=== PATIENT | male | born 2000 | race Caucasian/White ===

== ENCOUNTER 2023-05-25 08:33 | Inpatient (IN) | payer OTHER ==
[~2023-05-25] VITALS: Ht 183.5 cm; Wt 100.0 kg
[2023-05-25] MEDS ORDERED: IBUPROFEN 600 MG TABLET PO ONE (09:30)
[2023-05-25] MEDS ORDERED: HYDROCODONE/ACETAMINOPHEN 5-325 MG TABLET PO ONE (09:30)
[2023-05-25 10:35] LABS: BASOPHILS % (AUTO) 0.8 % (0.0-2.0); EOSINOPHILS % (AUTO) 2.5 % (1.0-6.0); HEMATOCRIT 41.2 % (41-53); LYMPHOCYTES # (AUTO) 2.5 K/uL (1.0-4.8); LYMPHOCYTES % (AUTO) 32.4 % (22.0-44.0); MEAN CORPUSCULAR HEMOGLOBIN 29.6 pg (26.0-34.0); MEAN CORPUSCULAR VOLUME 87 fL (80-100); MONOCYTES # (AUTO) 0.9 K/uL (0.1-1.0); MONOCYTES % (AUTO) 10.9 % (2.0-9.0); NEUTROPHILS # (AUTO) 4.2 K/uL (1.8-7.7); NEUTROPHILS % (AUTO) 53.4 % (40.0-70.0); PLATELET COUNT (AUTO) 246 K/uL (150-450); RED BLOOD CELL COUNT(AUTO) 4.74 MIL/uL (4.50-5.90); RED CELL DISTRIBUTION WIDTH 13.4 % (11.5-14.5); WHITE BLOOD COUNT (AUTO) 7.8 K/uL (4.5-11.0)
[2023-05-25 10:40] LABS: ANION GAP 11 mmol/L (8-16); CALCIUM, TOTAL 8.8 mg/dL (8.8-10.5); CARBON DIOXIDE 28 mmol/L (22-29); CHLORIDE 103 mmol/L (98-107); GLOMERULAR FILTR. RATE CALC > 60 mL/min (>60); GLUCOSE,RANDOM 105 mg/dL (70-110); POTASSIUM 4.1 mmol/L (3.5-5.1); SODIUM SERUM 142 mmol/L (136-145); UREA NITROGEN, BLOOD 10 mg/dL (7-18)
[2023-05-25 10:46] LABS: ALANINE AMINOTRANSFERASE 35 U/L (12-78); ALBUMIN 3.8 g/dL (3.4-5.0); ALKALINE PHOSPHATASE 76 U/L (46-116); ASPARTATE AMINOTRANSFERASE 25 U/L (15-37); BILIRUBIN,TOTAL 0.5 mg/dL (0.1-1.0); TOTAL PROTEIN, SERUM 6.9 g/dL (6.4-8.2)
[2023-05-25 11:40] LABS: COVID AG,FIA SOURCE NASAL SWAB
[2023-05-25 12:05] LABS: SARS-COV2 (COVID) ANTIGEN,FIA Negative (Negative)
[2023-05-25] MEDS ORDERED: ZOLPIDEM TARTRATE 5 MG TABLET PO PRN (15:00)
[2023-05-25] MEDS ORDERED: BISACODYL 10 MG RECTAL RECTAL SUPPOSITORY PR PRN (15:00)
[2023-05-25] MEDS ORDERED: MORPHINE SULFATE 2 MG/ML SYRINGE IVP PRN (15:00)
[2023-05-25] MEDS ORDERED: MAGNESIUM HYDROXIDE SUSPENSION 30 ML UDCUP PO PRN (15:00)
[2023-05-25] MEDS ORDERED: ONDANSETRON HCL 4 MG/2 ML VIAL IVP PRN (15:00)
[2023-05-25] MEDS ORDERED: ACETAMINOPHEN 325 MG TABLET PO PRN (15:00)
[2023-05-25] MEDS ORDERED: HYDROCODONE/ACETAMINOPHEN 5-325 MG TABLET PO PRN (15:00)
[2023-05-25 15:44] VITALS: BP 121/69; PULSE 83; RESP 18; TEMP 98.5
[2023-05-25] MEDS: HEPARIN SODIUM,PORCINE 5,000 UNITS/ML VIAL SQ SCH (17:17)
[2023-05-25 19:32] VITALS: BP 140/68; PULSE 88; RESP 18; TEMP 98
[2023-05-25] MEDS: DOCUSATE SODIUM 100 MG CAPSULE PO SCH (20:45)
[2023-05-25 22:09] LABS: ALCOHOL, URINE DRUG SCREEN NEGATIVE (NEGATIVE); AMPHET/METH SCREEN,URINE NEGATIVE (NEGATIVE); BARBITURATE SCREEN, URINE NEGATIVE (NEGATIVE); BENZODIAZEPINES SCREEN,URINE NEGATIVE (NEGATIVE); CANNABINOID SCREEN,URINE NEGATIVE (NEGATIVE); COCAINE SCREEN,URINE NEGATIVE (NEGATIVE); METHADONE SCREEN, URINE NEGATIVE (NEGATIVE); OPIATE SCREEN,URINE POSITIVE (NEGATIVE); PHENCYCLIDINE SCREEN,URINE NEGATIVE (NEGATIVE)
[2023-05-26 04:33] VITALS: BP 124/72; PULSE 70; RESP 20; TEMP 98.4
[2023-05-26] MEDS: HEPARIN SODIUM,PORCINE 5,000 UNITS/ML VIAL SQ SCH ×5 (08:00→23:57)
[2023-05-26] MEDS: PANTOPRAZOLE SODIUM 40 MG DR TABLET PO SCH (09:00)
[2023-05-26] MEDS: DOCUSATE SODIUM 100 MG CAPSULE PO SCH ×2 (09:00→20:10)
[2023-05-26 09:19] VITALS: BP 129/73; PULSE 99; RESP 20; TEMP 98.9
[2023-05-26] MEDS ORDERED: SODIUM CL IRRIG SOLN BAG 3,000 ML IRRIG ONE (10:02)
[2023-05-26] MEDS ORDERED: BUPIVACAINE/EPI/PF 0.5% 30 ML VIAL ONE (10:02)
[2023-05-26] MEDS ORDERED: TRANEXAMIC ACID 1,000 MG/10 ML VIAL ONE (10:02)
[2023-05-26] MEDS ORDERED: VANCOMYCIN HCL 1 GM/VIAL ONE (10:02)
[2023-05-26] MEDS ORDERED: BUPIVACAINE LIPOSOME/PF 1.3%-13.3MG/ML SUSPENSION 20 ML VIAL INJ ONE (10:15)
[2023-05-26] MEDS ORDERED: HYDROmorphone HCL 2 MG/ML SYRINGE IVP PRN (11:30)
[2023-05-26] MEDS ORDERED: FentaNYL CITRATE PF 100 MCG/2 ML VIAL IVP PRN (11:30)
[2023-05-26] MEDS ORDERED: MEPERIDINE-PF 25 MG/ML VIAL IVP PRN (11:30)
[2023-05-26] MEDS ORDERED: OxyCODONE HCL/ACETAMINOPHEN 5-325 MG TABLET PO PRN ×2 (13:15)
[2023-05-26] MEDS ORDERED: MORPHINE SULFATE 4 MG/ML SYRINGE IVP PRN (13:15)
[2023-05-26] MEDS ORDERED: NALOXONE HCL 0.4 MG/ML VIAL IVP PRN (13:15)
[2023-05-26] MEDS ORDERED: KETOROLAC TROMETHAMINE 30 MG/ML VIAL IVP PRN (13:15)
[2023-05-26] MEDS ORDERED: MEPERIDINE-PF 25 MG/ML VIAL ONE (13:33)
[2023-05-26 14:10] VITALS: BP 127/79; PULSE 82; RESP 13; TEMP 98
[2023-05-26] MEDS ORDERED: SODIUM CHLORIDE 0.9% 250 ML IV ONE (14:18)
[2023-05-26 14:30] VITALS: PULSE 77; RESP 16; O2SAT 98
[2023-05-26] MEDS: CeFAZolin 1 GM/DEXTROSE 50 ML IV SCH ×2 (14:47→21:00)
[2023-05-26] MEDS: KETOROLAC TROMETHAMINE 15 MG/ML VIAL IVP PRN (15:26)
[2023-05-26 19:08] VITALS: BP 146/76; PULSE 80; RESP 20; TEMP 98.7
[2023-05-26] MEDS: OXYGEN THERAPY IH SCH (20:00)
[2023-05-26] MEDS: ACETAMINOPHEN 325 MG TABLET PO PRN (20:11)
[2023-05-26 20:24] VITALS: BP 120/84; PULSE 106; RESP 20; TEMP 98.7
[2023-05-27 04:22] VITALS: BP 137/79; PULSE 86; RESP 20; TEMP 99.1
[2023-05-27] MEDS: KETOROLAC TROMETHAMINE 15 MG/ML VIAL IVP PRN (04:35)
[2023-05-27] MEDS ORDERED: FentaNYL CITRATE PF 100 MCG/2 ML VIAL IVP ONE (06:06)
[2023-05-27] MEDS ORDERED: LIDOCAINE/PF 2% 5 ML VIAL IM ONE (06:06)
[2023-05-27] MEDS ORDERED: ACETAMINOPHEN/ISO-OSM 1000 MG/100 ML BOTTLE IV ONE (06:06)
[2023-05-27] MEDS ORDERED: TRANEXAMIC ACID 1,000 MG/10 ML VIAL IVP ONE (06:06)
[2023-05-27] MEDS ORDERED: METOCLOPRAMIDE HCL 5 MG/ML 2 ML VIAL IVP ONE (06:06)
[2023-05-27] MEDS ORDERED: MIDAZOLAM HCL 2 MG/2 ML VIAL IVP ONE (06:06)
[2023-05-27] MEDS ORDERED: SUGAMMADEX SODIUM 200 MG/2 ML VIAL IVP ONE (06:06)
[2023-05-27] MEDS ORDERED: PROPOFOL 1% 20 ML VIAL IVP ONE (06:06)
[2023-05-27] MEDS ORDERED: CeFAZolin SODIUM 1 GM VIAL IVP ONE (06:06)
[2023-05-27] MEDS ORDERED: ROCURONIUM BROMIDE 10 MG/ML 5 ML VIAL IVP ONE (06:06)
[2023-05-27] MEDS: OXYGEN THERAPY IH SCH (08:00)
[2023-05-27] MEDS: HEPARIN SODIUM,PORCINE 5,000 UNITS/ML VIAL SQ SCH (08:00)
[2023-05-27 08:45] VITALS: BP 140/89; PULSE 92; RESP 20; TEMP 98.5
[2023-05-27] MEDS: DOCUSATE SODIUM 100 MG CAPSULE PO SCH (09:00)
[2023-05-27] MEDS: PANTOPRAZOLE SODIUM 40 MG DR TABLET PO SCH (09:09)
[2023-05-27] MEDS: ACETAMINOPHEN 325 MG TABLET PO PRN (13:54)
[2023-05-29] MEDS ORDERED: OxyCODONE HCL/ACETAMINOPHEN 5-325 MG TABLET PO PRN ×2 (13:15)
== END 2023-05-27 16:21 | DRG 493 ==
LOC: EMS 08:46 → 6S 12:26
PROVIDERS: ADMIT Internal Medicine; ATTEND Internal Medicine
PROC: 0PSF04Z Reposition Right Humeral Shaft with Internal Fixation Device, Open Approach (ICD-10-PCS; principal; 2023-05-26 10:30)
DX: S42.421A Displaced comminuted supracondylar fracture without intercondylar fracture of right humerus, initial encounter for closed fracture (principal); S42.351A Displaced comminuted fracture of shaft of humerus, right arm, initial encounter for closed fracture; G56.31 Lesion of radial nerve, right upper limb; W19.XXXA Unspecified fall, initial encounter; Z20.822 Contact with and (suspected) exposure to COVID-19
CPT/HCPCS: 80053; 80307; 85025; 87081; 97166; 97535; 99285; C9290; G0238; J0131; J0690; J1644; J1885; J2175; J2250; J2704; J2765; J3010; J3370; J3490; J7050; Q9967